=== PATIENT | female | born 1985 | race Caucasian/White ===

== ENCOUNTER 2016-06-12 22:03 | Emergency (ER) | payer SELFPAY ==
[2016-06-12 22:18] LABS: EOSINOPHIL (%) 0.2 % (0-5); HEMATOCRIT 36.2 % (36.0-46.0); IMMATURE GRANULOCYTE (%) 0.5 % (0.0-0.7); IMMATURE GRANULOCYTE COUNT 0.1 K/uL; INSTRUMENT ABS NEUTROPHIL CT 7.8 K/uL; LYMPHOCYTE COUNT 1.9 K/uL (1.0-2.8); MCH 27.2 PG (29.0-34.0); MCHC 33.4 G/DL (30.0-36.0); MCV 81.3 FL (83-99); MEAN PLAT.VOLUME 9.2 uM^3 (9.5-12.4); MONOCYTE (%) 5.5 % (3-12); MONOCYTE COUNT 0.6 K/uL (0-0.8); NEUTROPHIL (%) 74.8 % (45-76); NEUTROPHIL COUNT 7.8 K/uL (1.8-6.4); PLATELET COUNT 341 K/uL (156-360); RBC DIS.WIDTH-CV 12.6 % (11.8-14.6); RED BLOOD COUNT 4.45 M/uL (3.80-5.20); WHITE BLOOD COUNT 10.4 K/uL (4.1-10.2)
[2016-06-12 22:27] LABS: AMYLASE 46 IU/L (1-118); CHLORIDE 103 mEq/L (99-109); POTASSIUM 2.7 mEq/L (3.7-5.4); SODIUM 140 mEq/L (136-147)
[2016-06-12 22:28] LABS: GLUCOSE 149 mg/dL (70-99)
[2016-06-12 22:30] LABS: ANION GAP 10 MEQ/L (2-14)
[2016-06-12 22:31] LABS: SERUM ETHYL ALCOHOL < 10 mg/dL
[2016-06-12 22:33] LABS: UREA NITROGEN (BUN) 9 mg/dL (9-23)
[2016-06-12 22:34] LABS: GFR ESTIMATE (CALCULATED) > 59 mL/min/
[2016-06-12 22:35] LABS: LIPASE 8 U/L (1.0-51.0)
[2016-06-12 22:41] LABS: QUANTITATIVE HCG < 4.0 MIU/ML
[2016-06-13] MEDS ORDERED: FLEXERIL5 MG PO (00:59)
[2016-06-13] MEDS ORDERED: MOTRIN800 MG PO (00:59)
[2016-06-13 01:46] VITALS: BP 116/76
== END 2016-06-13 01:46 | disposition home or self-care (01) ==
LOC: TRA 22:03
PROVIDERS: Emergency Medicine
PROC: 0HQ0XZZ Repair Scalp Skin, External Approach (ICD-10-PCS; principal; 2016-06-12)
DX: T14.8 Other injury of unspecified body region (principal); S01.01XA Laceration without foreign body of scalp, initial encounter; E87.6 Hypokalemia; V98.8XXA Other specified transport accidents, initial encounter; R51 Headache; M54.2 Cervicalgia; M54.5 Low back pain; F17.200 Nicotine dependence, unspecified, uncomplicated
CPT/HCPCS: 70450; 70486; 71260; 72125; 72129; 72132; 73610; 73630; 74177; 80048; 81003; 82150; 83690; 84702; 85025; 86850; 86900; 86901; 99281; 99285; G0480; J1885; J2270; J2405